=== PATIENT | male | born 1940 | race Caucasian/White ===

== ENCOUNTER 2023-12-08 06:04 | Inpatient (IN) ==
[2023-12-08] MEDS ORDERED: fentaNYL 100 MCG/2 ML VIAL IV ONE ×2 (06:40→10:05)
[2023-12-08] MEDS ORDERED: ONDANSETRON 4 MG/2 ML VIAL IV ONE (06:40)
[2023-12-08 06:41] LABS: Basophils # (Auto) 0.02 K/mcL (0.00-0.30); Basophils % (Auto) 0.3 % (0.0-2.0); Eosinophils # (Auto) 0.18 K/mcL (0.00-0.70); Eosinophils % (Auto) 2.7 % (0.0-7.0); Hematocrit 43.7 % (40.1-51.0); Hemoglobin 14.4 g/dL (13.7-17.5); Lymphocytes % (Auto) 17.8 % (15.5-49.0); Mean Cell Volume 91.6 fL (80.0-100.0); Mean Platelet Volume 9.3 fL (8.8-12.5); Monocytes # (Auto) 0.56 K/mcL (0.10-0.90); Monocytes % (Auto) 8.3 % (1.0-12.0); Neutrophils % (Auto) 70.6 % (38.0-78.0); Platelet Count 192 K/mcL (140-440); RBC 4.77 M/mcL (4.63-6.08); Red Cell Distribution Width 12.7 % (11.5-14.5); WBC 6.8 K/mcL (4.5-11.0)
[2023-12-08 06:53] LABS: ALT/SGPT 32 U/L (<40); AST/SGOT 33 U/L (<40); Albumin 4.2 gm/dL (3.2-5.2); Albumin/Globulin Ratio 1.6 (1.0-2.3); Alkaline Phosphatase 75 U/L (39-117); Bilirubin,Total 0.6 mg/dL (0.1-1.0); Blood Urea Nitrogen 18 mg/dL (8-23); Calcium 9.5 mg/dL (8.6-10.4); Carbon Dioxide 25 mmol/L (22-30); Chloride 101 mmol/L (96-108); Globulin 2.7 gm/dL (2.2-3.7); Glomerular Filtration Rate 80; Glucose 209 mg/dL (70-105)
[2023-12-08] MEDS ORDERED: morphine 4 MG/ML VIAL IV ONE (07:52)
[2023-12-08] MEDS ORDERED: ceFAZolin 2 GM in DEXTROSE 5% IN WATER 50 ML IV SCH ×2 (11:15→13:15)
[2023-12-08] MEDS ORDERED: PROPOFOL 200 MG/20 ML VIAL IV ONE (11:18)
[2023-12-08] MEDS ORDERED: fentaNYL 100 MCG/2 ML VIAL ONE (11:19)
[2023-12-08] MEDS ORDERED: TRANEXAMIC ACID 1,000 MG/10 ML VIAL ONE (12:28)
[2023-12-08] MEDS ORDERED: ROCURONIUM 10 MG/ML ML IV ONE (12:30)
[2023-12-08] MEDS ORDERED: ONDANSETRON 4 MG/2 ML VIAL ONE (12:30)
[2023-12-08] MEDS ORDERED: HYDROmorphone 1 MG/ML SYRINGE ONE (12:47)
[2023-12-08] MEDS ORDERED: IPRATROPIUM/ALBUTEROL 3 ML AMPUL.NEB NEB PRN ×3 (12:49→14:28)
[2023-12-08] MEDS ORDERED: ONDANSETRON 4 MG/2 ML VIAL IV PRN ×3 (12:49→14:28)
[2023-12-08] MEDS ORDERED: NALOXONE HCL 0.4 MG/ML VIAL IV PRN ×2 (12:49→12:51)
[2023-12-08] MEDS ORDERED: FLUMAZENIL 0.1 MG/ML ML IV PRN ×2 (12:49→12:51)
[2023-12-08] MEDS ORDERED: fentaNYL 100 MCG/2 ML VIAL IV PRN (12:51)
[2023-12-08] MEDS ORDERED: PHENYLephrine 1 MG/10 ML SYRINGE (ANEST) ONE (12:54)
[2023-12-08] MEDS ORDERED: LACTATED RINGERS 1,000 ML IV SCH ×2 (13:00)
[2023-12-08] MEDS ORDERED: POLYETHYLENE GLYCOL 3350 17 GM PACKET PO PRN ×2 (13:07→14:28)
[2023-12-08] MEDS ORDERED: ONDANSETRON 4 MG ODT TABLET SL PRN (13:07)
[2023-12-08] MEDS ORDERED: MAGNESIUM HYDROXIDE 30 ML ORAL.SUSP PO PRN (13:07)
[2023-12-08] MEDS ORDERED: FLEETS ADULT 1 DOSE ENEMA PR PRN (13:07)
[2023-12-08] MEDS ORDERED: BISACODYL 10 MG SUPP.RECT PR PRN (13:07)
[2023-12-08] MEDS ORDERED: BENZOCAINE/MENTHOL 1 LOZENGE PO PRN (13:07)
[2023-12-08] MEDS ORDERED: SUGAMMADEX SODIUM 200 MG/2 ML VIAL IV ONE (13:09)
[2023-12-08] MEDS ORDERED: 0.9 % SODIUM CHLORIDE 1,000 ML IV SCH (13:15)
[2023-12-08] MEDS: fentaNYL 100 MCG/2 ML VIAL IV PRN ×3 (13:35→13:48)
[2023-12-08] MEDS ORDERED: HYDROcodone/APAP 5/325MG TABLET PO PRN (14:28)
[2023-12-08] MEDS ORDERED: DEXTROSE 31 GM ORAL.SUSP PO PRN (14:28)
[2023-12-08] MEDS ORDERED: morphine 4 MG/ML VIAL IV PRN (14:28)
[2023-12-08] MEDS ORDERED: hydrALAZINE 20 MG/ML VIAL IV PRN (14:28)
[2023-12-08] MEDS ORDERED: SENNOSIDES 1 TABLET PO PRN (14:28)
[2023-12-08] MEDS ORDERED: DEXTROSE 50% 50 ML VIAL IV PRN (14:28)
[2023-12-08] MEDS ORDERED: ACETAMINOPHEN 325 MG TABLET PO PRN (14:28)
[2023-12-08] MEDS ORDERED: MAGNESIUM SULFATE 2 GM/50 ML BAG IV PRN (14:28)
[2023-12-08] MEDS ORDERED: POTASSIUM CHLORIDE 40 MEQ in DEXTROSE 5% IN WATER 500 ML IV PRN (14:28)
[2023-12-08] MEDS ORDERED: POTASSIUM CHLORIDE 20 MEQ TABLET PO PRN ×2 (14:28)
[2023-12-08] MEDS: 0.9 % SODIUM CHLORIDE 10 ML SYRINGE IV SCH ×2 (14:43→20:18)
[2023-12-08] MEDS: morphine 4 MG/ML VIAL IV PRN ×3 (14:49→22:21)
[2023-12-08] MEDS: INSULIN LISPRO 1 UNIT/0.01 ML UNIT SQ SCH ×3 (14:51→20:17)
[2023-12-08 16:32] LABS: Appearance,Urine Clear (Clear); Bacteria,Urine 0 /hpf (0); Bilirubin,Urine Negative (Negative); Color,Urine Yellow; Culture Indicated,Urine No; Glucose,Urine (UA) Negative (Negative); Ketones,Urine 40 mg/dL (Negative); Leukocyte Esterase,Urine Negative /uL (Negative); Mucus,Urine Many /hpf; Nitrate,Urine Negative (Negative); Protein,Urine 30 mg/dL (Negative); Specific Gravity,Urine 1.025 (1.000-1.035); Urine Blood Negative ery/mcL (Negative); Urine RBC < 1 /hpf (0-3); Urine Squamous Epithelial Cell 0 /hpf (0-4); Urine WBC 2 /hpf (0-4); Urobilinogen,Urine Normal
[2023-12-08] MEDS: 0.9 % SODIUM CHLORIDE 1,000 ML IV SCH ×2 (16:38→17:22)
[2023-12-08] MEDS: ASPIRIN 81 MG TAB.CHEW PO SCH (20:16)
[2023-12-08] MEDS: SENNOSIDES 1 TABLET PO SCH (20:16)
[2023-12-08] MEDS: HYDROcodone/APAP 10/325MG TABLET PO PRN (20:16)
[2023-12-08] MEDS: DOCUSATE SODIUM 100 MG CAPSULE PO SCH (20:16)
[2023-12-08] MEDS: ceFAZolin 1 GM VIAL IV SCH (20:27)
[2023-12-08] MEDS: SIMVASTATIN 20 MG TABLET PO SCH ×2 (20:33→21:00)
[2023-12-08] MEDS ORDERED: DOCUSATE SODIUM 100 MG CAPSULE PO SCH (21:00)
[2023-12-08] MEDS: TRAVOPROST OPHTH DROPS BOTTLE 2.5ML OS SCH (22:16)
[2023-12-08] MEDS: METHOCARBAMOL 750 MG TABLET PO PRN (22:21)
[2023-12-09] MEDS: ceFAZolin 1 GM VIAL IV SCH (03:29)
[2023-12-09] MEDS: 0.9 % SODIUM CHLORIDE 10 ML SYRINGE IV SCH ×3 (05:22→20:27)
[2023-12-09 06:44] LABS: ALT/SGPT 21 U/L (<40); AST/SGOT 38 U/L (<40); Albumin 3.5 gm/dL (3.2-5.2); Albumin/Globulin Ratio 1.8 (1.0-2.3); Alkaline Phosphatase 53 U/L (39-117); Bilirubin,Direct 0.2 mg/dL (<0.3); Bilirubin,Total 0.6 mg/dL (0.1-1.0); Blood Urea Nitrogen 19 mg/dL (8-23); Calcium 8.8 mg/dL (8.6-10.4); Carbon Dioxide 25 mmol/L (22-30); Chloride 104 mmol/L (96-108); Globulin 1.9 gm/dL (2.2-3.7); Glomerular Filtration Rate 84; Glucose 153 mg/dL (70-105); Lactate Dehydrogenase 169 U/L (135-225); Phosphorous 3.6 mg/dL (2.5-4.5); Triglycerides 89 mg/dL (<150); Uric Acid 5.9 mg/dL (2.5-8.0)
[2023-12-09] MEDS: METHOCARBAMOL 750 MG TABLET PO PRN ×3 (07:32→23:57)
[2023-12-09] MEDS: HYDROcodone/APAP 10/325MG TABLET PO PRN ×3 (07:32→20:15)
[2023-12-09] MEDS: morphine 4 MG/ML VIAL IV PRN ×2 (07:33→09:27)
[2023-12-09] MEDS: INSULIN LISPRO 1 UNIT/0.01 ML UNIT SQ SCH ×4 (07:35→20:26)
[2023-12-09] MEDS: ASPIRIN 81 MG TAB.CHEW PO SCH ×2 (08:36→20:15)
[2023-12-09] MEDS: DOCUSATE SODIUM 100 MG CAPSULE PO SCH ×2 (08:36→20:15)
[2023-12-09] MEDS: Timolol 0.5 % drops OP SCH (08:38)
[2023-12-09] MEDS: SENNOSIDES 1 TABLET PO SCH (20:15)
[2023-12-09] MEDS: SIMVASTATIN 20 MG TABLET PO SCH (20:15)
[2023-12-09] MEDS: TRAVOPROST OPHTH DROPS BOTTLE 2.5ML OS SCH (20:20)
[2023-12-10] MEDS: 0.9 % SODIUM CHLORIDE 10 ML SYRINGE IV SCH ×3 (05:34→21:14)
[2023-12-10] MEDS: ASPIRIN 81 MG TAB.CHEW PO SCH ×2 (08:46→20:00)
[2023-12-10] MEDS: DOCUSATE SODIUM 100 MG CAPSULE PO SCH ×2 (08:47→20:00)
[2023-12-10] MEDS: INSULIN LISPRO 1 UNIT/0.01 ML UNIT SQ SCH ×4 (08:50→21:13)
[2023-12-10] MEDS: Timolol 0.5 % drops OP SCH (08:53)
[2023-12-10] MEDS: HYDROcodone/APAP 10/325MG TABLET PO PRN (09:38)
[2023-12-10] MEDS ORDERED: 0.9 % SODIUM CHLORIDE 1,000 ML IV ONE (12:40)
[2023-12-10] MEDS: SIMVASTATIN 20 MG TABLET PO SCH (20:00)
[2023-12-10] MEDS: METHOCARBAMOL 750 MG TABLET PO PRN (20:00)
[2023-12-10] MEDS: SENNOSIDES 1 TABLET PO SCH (20:01)
[2023-12-10] MEDS: TRAVOPROST OPHTH DROPS BOTTLE 2.5ML OS SCH (20:03)
[2023-12-11] MEDS: HYDROcodone/APAP 10/325MG TABLET PO PRN ×4 (04:30→21:19)
[2023-12-11] MEDS: 0.9 % SODIUM CHLORIDE 10 ML SYRINGE IV SCH ×3 (04:31→21:22)
[2023-12-11] MEDS: INSULIN LISPRO 1 UNIT/0.01 ML UNIT SQ SCH ×4 (07:19→21:17)
[2023-12-11] MEDS: 0.9 % SODIUM CHLORIDE 1,000 ML IV SCH (08:21)
[2023-12-11] MEDS: Timolol 0.5 % drops OP SCH (08:22)
[2023-12-11] MEDS: ASPIRIN 81 MG TAB.CHEW PO SCH ×2 (08:22→21:16)
[2023-12-11] MEDS: DOCUSATE SODIUM 100 MG CAPSULE PO SCH ×2 (08:22→21:16)
[2023-12-11] MEDS: METOPROLOL TARTRATE 5 MG/5 ML VIAL IV SCH ×6 (08:38→14:40)
[2023-12-11 08:59] LABS: ALT/SGPT 19 U/L (<40); AST/SGOT 32 U/L (<40); Albumin 3.2 gm/dL (3.2-5.2); Albumin/Globulin Ratio 1.4 (1.0-2.3); Alkaline Phosphatase 53 U/L (39-117); Anion Gap 9.1 (8.0-16.0); Basophils # (Auto) 0.01 K/mcL (0.00-0.30); Basophils % (Auto) 0.1 % (0.0-2.0); Bilirubin,Total 0.6 mg/dL (0.1-1.0); Blood Urea Nitrogen 14 mg/dL (8-23); Calcium 8.9 mg/dL (8.6-10.4); Carbon Dioxide 26 mmol/L (22-30); Chloride 101 mmol/L (96-108); Eosinophils # (Auto) 0.06 K/mcL (0.00-0.70); Eosinophils % (Auto) 0.7 % (0.0-7.0); Globulin 2.3 gm/dL (2.2-3.7); Glomerular Filtration Rate 91; Glucose 179 mg/dL (70-105); Hematocrit 23.3 % (40.1-51.0); Hemoglobin 7.6 g/dL (13.7-17.5); Lymphocytes # (Auto) 0.86 K/mcL (1.50-4.80); Mean Corpuscular HGB Conc 32.6 g/dL (31.0-36.0); Mean Platelet Volume 9.3 fL (8.8-12.5); Monocytes # (Auto) 0.69 K/mcL (0.10-0.90); Neutrophils % (Auto) 80.6 % (38.0-78.0); Platelet Count 149 K/mcL (140-440); RBC 2.48 M/mcL (4.63-6.08); Red Cell Distribution Width 13.2 % (11.5-14.5); WBC 8.6 K/mcL (4.5-11.0)
[2023-12-11] MEDS ORDERED: 0.9 % SODIUM CHLORIDE 1,000 ML IV ONE (09:14)
[2023-12-11] MEDS ORDERED: METOPROLOL TARTRATE 25 MG TABLET PO ONE (14:45)
[2023-12-11] MEDS: SENNOSIDES 1 TABLET PO SCH (21:16)
[2023-12-11] MEDS: SIMVASTATIN 20 MG TABLET PO SCH (21:17)
[2023-12-11] MEDS: METOPROLOL TARTRATE 25 MG TABLET PO SCH (21:17)
[2023-12-11] MEDS: TRAVOPROST OPHTH DROPS BOTTLE 2.5ML OS SCH (21:22)
[2023-12-11 22:11] LABS: Basophils # (Auto) 0.02 K/mcL (0.00-0.30); Basophils % (Auto) 0.3 % (0.0-2.0); Eosinophils # (Auto) 0.26 K/mcL (0.00-0.70); Eosinophils % (Auto) 3.4 % (0.0-7.0); Hematocrit 21.6 % (40.1-51.0); Lymphocytes # (Auto) 0.93 K/mcL (1.50-4.80); Mean Cell Volume 95.2 fL (80.0-100.0); Mean Corpuscular HGB Conc 32.4 g/dL (31.0-36.0); Mean Platelet Volume 9.3 fL (8.8-12.5); Monocytes # (Auto) 0.68 K/mcL (0.10-0.90); Monocytes % (Auto) 8.8 % (1.0-12.0); Neutrophils % (Auto) 73.7 % (38.0-78.0); Platelet Count 152 K/mcL (140-440); RBC 2.27 M/mcL (4.63-6.08); Red Cell Distribution Width 13.3 % (11.5-14.5); WBC 7.7 K/mcL (4.5-11.0)
[2023-12-11] MEDS ORDERED: FUROSEMIDE 20 MG/2 ML VIAL IV ONE (22:39)
[2023-12-11] MEDS ORDERED: 0.9 % SODIUM CHLORIDE 250 ML IV SCH (22:45)
[2023-12-12] MEDS ORDERED: METOPROLOL TARTRATE 5 MG/5 ML VIAL IV ONE ×2 (01:52→03:19)
[2023-12-12] MEDS: METOPROLOL TARTRATE 5 MG/5 ML VIAL IV SCH ×2 (02:00→03:25)
[2023-12-12] MEDS ORDERED: FUROSEMIDE 20 MG/2 ML VIAL IV ONE (03:20)
[2023-12-12] MEDS: 0.9 % SODIUM CHLORIDE 10 ML SYRINGE IV SCH ×2 (05:17→14:39)
[2023-12-12] MEDS: METOPROLOL TARTRATE 25 MG TABLET PO SCH (07:46)
[2023-12-12] MEDS: ASPIRIN 81 MG TAB.CHEW PO SCH (07:47)
[2023-12-12] MEDS: DOCUSATE SODIUM 100 MG CAPSULE PO SCH (07:47)
[2023-12-12] MEDS: Timolol 0.5 % drops OP SCH (07:53)
[2023-12-12] MEDS: INSULIN LISPRO 1 UNIT/0.01 ML UNIT SQ SCH ×2 (09:19→13:16)
[2023-12-12] MEDS: METHOCARBAMOL 750 MG TABLET PO PRN (10:01)
[2023-12-12] MEDS: HYDROcodone/APAP 10/325MG TABLET PO PRN ×2 (10:01→14:38)
[2023-12-12 10:41] LABS: ALT/SGPT 23 U/L (<40); AST/SGOT 30 U/L (<40); Albumin 3.2 gm/dL (3.2-5.2); Albumin/Globulin Ratio 1.3 (1.0-2.3); Alkaline Phosphatase 59 U/L (39-117); Basophils # (Auto) 0.03 K/mcL (0.00-0.30); Basophils % (Auto) 0.3 % (0.0-2.0); Bilirubin,Total 1.2 mg/dL (0.1-1.0); Blood Urea Nitrogen 15 mg/dL (8-23); Calcium 8.9 mg/dL (8.6-10.4); Carbon Dioxide 29 mmol/L (22-30); Chloride 97 mmol/L (96-108); Eosinophils # (Auto) 0.26 K/mcL (0.00-0.70); Eosinophils % (Auto) 2.8 % (0.0-7.0); Globulin 2.4 gm/dL (2.2-3.7); Glomerular Filtration Rate 94; Glucose 138 mg/dL (70-105); Hematocrit 28.3 % (40.1-51.0); Hemoglobin 9.4 g/dL (13.7-17.5); Lymphocytes # (Auto) 0.82 K/mcL (1.50-4.80); Lymphocytes % (Auto) 8.9 % (15.5-49.0); Mean Cell Volume 90.7 fL (80.0-100.0); Mean Corpuscular HGB Conc 33.2 g/dL (31.0-36.0); Mean Platelet Volume 9.2 fL (8.8-12.5); Monocytes # (Auto) 0.68 K/mcL (0.10-0.90); Monocytes % (Auto) 7.4 % (1.0-12.0); Neutrophils % (Auto) 79.4 % (38.0-78.0); Platelet Count 168 K/mcL (140-440); RBC 3.12 M/mcL (4.63-6.08); Red Cell Distribution Width 14.4 % (11.5-14.5); WBC 9.2 K/mcL (4.5-11.0)
== END 2023-12-12 14:40 ==
LOC: ED 06:04 → SUR 11:27 → MEDSUR 14:02
PROVIDERS: ADMIT Internal Medicine; ATTEND Internal Medicine